=== PATIENT | female | born 1990 | race Caucasian/White ===

== ENCOUNTER 2022-12-18 13:13 | Inpatient (IN) | payer MEDICAID, SELFPAY ==
[2022-12-18] VITALS (29 sets, daily range): BP systolic 103–192; BP diastolic 55–132; PULSE 55–91; RESP 16; TEMP 35.7–36.8
[2022-12-18 14:10] LABS: Hematocrit 32.9 % (36.0-48.0); Hemoglobin 11.1 g/dL (12.0-16.0); Mean Corpuscular HGB Conc 33.7 g/dL (29.9-35.2); Mean Corpuscular Hemoglobin 29.3 pg (26.7-34.0); Mean Corpuscular Volume 86.8 fL (81.0-99.0); Mean Platelet Volume 11.2 fL (9.5-13.5); Platelet Count 252 10^3/uL (150-450); Red Blood Count 3.79 10^6/uL (4.20-5.40); Red Cell Distribution Width 13.2 % (11.0-15.0); White Blood Count 11.8 10^3/uL (4.0-11.0)
[2022-12-18 14:33] LABS: Amphetamine Screen Urine NEGATIVE (NEGATIVE); Barbiturates Screen Urine NEGATIVE (NEGATIVE); Benzodiazepines Screen Urine NEGATIVE (NEGATIVE); Buprenorphine Screen Urine NEGATIVE (NEGATIVE); Cannabinoid Screen Urine POSITIVE (NEGATIVE); Cocaine Screen Urine NEGATIVE (NEGATIVE); Methadone Screen Urine NEGATIVE (NEGATIVE); Methamphetamines Screen Urine NEGATIVE (NEGATIVE); Opiate Screen Urine NEGATIVE (NEGATIVE); Oxycodone Screen Urine NEGATIVE (NEGATIVE); Phencyclidine Screen Urine NEGATIVE (NEGATIVE); Tricyclic Antidepressant Urine NEGATIVE (NEGATIVE)
[2022-12-18] MEDS: OXYTOCIN 10 UNIT in 0.9 % SODIUM CHLORIDE 500 ML 6.012 UNIT IV (15:15)
--- NOTE | 2022-12-18 16:37 | PC.NURSE ---
From 1600 - 1620 patients IV keeps alarming distal occlusion. RN tries to adjust tubing and rescure the IV. Pt states Can you please just put a new IV in? This one is very uncomfortable. At 1620 new IV is started and pitocin is resumed. Pt remains on birthing ball with RN at bedside adjusting monitors.
--- NOTE | 2022-12-18 19:26 | W.PC.ACHO ---
Registration Status: ADM IN Primary Language: Slovenian Preferred Language: Slovenian Report given to Ruth Aviles RN Active Medications Generic Name Dose Route Start Last Admin Trade Name Freq PRN Reason Stop Dose Admin Carboprost Tromethamine 250 mcg 12/18/22 13:24 Carboprost Tromethamine 250 Mcg/Ml 1 Ml Vial IM Q15M PRN Bleeding Diphenhydramine HCl 25 mg 12/18/22 14:29 Diphenhydramine Hcl 50 Mg/Ml (1ml) Vial IV Q6H PRN Itching Ephedrine Sulfate 5 mg 12/18/22 14:29 Ephedrine Sulfate 50 Mg/Ml Vial IV Q5M PRN Blood Pressure - Low Fentanyl Citrate 100 mcg 12/18/22 14:29 Fentanyl Citrate/Pf 100 Mcg/2 Ml Vial EPIDURAL Q4H PRN Pain Sodium Chloride 1,000 mls @ 125 mls/hr 12/18/22 13:30 Sodium Chloride 0.9% 1,000 Ml IV .Q8H JEANNA Oxytocin 10 unit/ Sodium 501 mls @ 6.012 mls/hr 12/18/22 13:30 12/18/22 15:15 Chloride IV 2 milliunit/min Q24H JEANNA 6.012 mls/hr Administration 2 MILLIUNIT/MIN Oxytocin 10 unit/ Sodium 501 mls @ 6.012 mls/hr 12/18/22 13:30 Chloride IV Q24H JEANNA 2 MILLIUNIT/MIN Lidocaine 5 ml 12/18/22 13:24 Lidocaine Viscous 2% 15 Ml Topical Solution TOPICAL ONCE PRN Pain Lidocaine 1 ml 12/18/22 13:24 Lidocaine Hcl 1% 200 Mg/20 Ml Mdv INJ ONCE PRN Pain Lidocaine 5 ml 12/18/22 14:29 Lidocaine Hcl 2% Pf 100 Mg/5 Ml Vial INJ Q1H PRN Pain Methylergonovine Maleate 0.2 mg 12/18/22 13:24 Methylergonovine Maleate 0.2 Mg Tablet PO Q4H PRN Uterine Contractility/Contract Methylergonovine Maleate 0.2 mg 12/18/22 13:24 Methylergonovine Maleate 0.2 Mg/Ml Ampule IM ONCE PRN Uterine Contractility/Contract Misoprostol 600 mcg 12/18/22 13:24 Misoprostol 100 Mcg Tablet PO ONCE PRN Uterine Bleeding Misoprostol 800 mcg 12/18/22 13:24 Misoprostol 100 Mcg Tablet SL ONCE PRN Uterine Bleeding Misoprostol 1,000 mcg 12/18/22 13:24 Misoprostol 100 Mcg Tablet FL ONCE PRN Uterine Bleeding Nalbuphine HCl 10 mg 12/18/22 13:24 Nalbuphine Hcl 10 Mg/Ml Ampule IV Q3H PRN Pain Naloxone HCl 0.4 mg 12/18/22 14:29 Naloxone Hcl 0.4 Mg/Ml Vial IV ONCE PRN Pain Ondansetron HCl 4 mg 12/18/22 13:24 Ondansetron Pf 4 Mg/2 Ml Vial IV Q6H PRN Nausea And Vomiting Ondansetron HCl 4 mg 12/18/22 13:24 Ondansetron 4 Mg Rapdis Tablet SL Q6H PRN Nausea And Vomiting Oxytocin 10 unit 12/18/22 13:24 Oxytocin 100 Unit/10 Ml Vial IM ONCE PRN Uterine Bleeding Diet Category Date Time Status Clear Liquid Diet Diet 12/18/22 Lunch Active Consults Category Date Time Status Consult to Healthcare Associate Routine Cons 12/18/22 Ordered IV Insertion/Site Date of IV Line Insertion [18g 12/18/22 right Hand] Date of IV Line Insertion [18g 12/18/22 left Hand] IV Insertion Time [18g right 16:20 Hand] IV Insertion Time [18g left 13:50 Hand] Neurology Patient orientation (short person,place,time,situation list)
--- NOTE | 2022-12-18 20:45 | PC.NURSE ---
1930- RN educating pt on labor processes and pushing techniques at this time. Pt voices understanding.
[2022-12-18] MEDS: 0.9 % SODIUM CHLORIDE 1,000 ML 1000 ML IV (22:30)
[2022-12-18] MEDS: ROPIVACAINE HCL/PF 400 MG/200 ML PREMIX 10 MG EPIDURAL (23:31)
[2022-12-18] MEDS: 0.9 % SODIUM CHLORIDE 1,000 ML 125 ML IV (23:34)
[2022-12-19] VITALS (54 sets, daily range): BP systolic 101–133; BP diastolic 50–76; PULSE 48–103; RESP 16–18; TEMP 36.1–37.2
[2022-12-19] MEDS: FENTANYL CITRATE/PF 100 MCG/2 ML VIAL EPIDURAL (00:29)
[2022-12-19] MEDS: 0.9 % SODIUM CHLORIDE 1,000 ML 125 ML IV (01:46)
--- NOTE | 2022-12-19 04:03 | PM.OBPRCVD ---
Procedure Intrapartal events: None Induction method: per pitocin protocol Delivery augmentation: rupture of membranes and pitocin Delivery monitor: external FHT and external uterine Route of delivery: Laceration description: none Estimated blood loss (mL): 200 Anesthesia type: Epidural Disposition: floor Infant Gender: female presentation: vertex Placental delivery description: Spontaneous cord description: 3 Vessels, Nuchal Cord and Loose
--- NOTE | 2022-12-19 08:29 | W.PC.ACHO ---
Registration Status: ADM IN Primary Language: Tanzanian Preferred Language: Tanzanian Report given to Bin HOWARD. Active Medications Generic Name Dose Route Start Last Admin Trade Name Freq PRN Reason Stop Dose Admin Acetaminophen 650 mg 12/19/22 04:02 Acetaminophen 325 Mg Tablet PO Q6H PRN Mild Pain Al Hydroxide/Mg Hydroxide 2,400 mg 12/19/22 04:02 Magnesium Hydroxide 2,400 Mg/10 Ml Oral.Susp PO Q6H PRN Dyspepsia Benzocaine/Menthol 1 applic 12/19/22 04:02 Benzocaine/Menthol 85 Gram Bottle TOPICAL DIRECTED PRN Pain Carboprost Tromethamine 250 mcg 12/18/22 13:24 Carboprost Tromethamine 250 Mcg/Ml 1 Ml Vial IM Q15M PRN Bleeding Diphenhydramine HCl 25 mg 12/18/22 14:29 Diphenhydramine Hcl 50 Mg/Ml (1ml) Vial IV Q6H PRN Itching Docusate Sodium 100 mg 12/20/22 09:00 Docusate Sodium 100 Mg Capsule PO BID JEANNA Ephedrine Sulfate 5 mg 12/18/22 14:29 Ephedrine Sulfate 50 Mg/Ml Vial IV Q5M PRN Blood Pressure - Low Fentanyl Citrate 100 mcg 12/18/22 14:29 12/19/22 00:29 Fentanyl Citrate/Pf 100 Mcg/2 Ml Vial EPIDURAL 100 mcg Q4H PRN Administration Pain Sodium Chloride 1,000 mls @ 125 mls/hr 12/18/22 13:30 12/19/22 01:46 Sodium Chloride 0.9% 1,000 Ml IV 125 mls/hr .Q8H JEANNA Administration Oxytocin 10 unit/ Sodium 501 mls @ 6.012 mls/hr 12/18/22 13:30 12/18/22 15:15 Chloride IV 2 milliunit/min Q24H JEANNA 6.012 mls/hr Administration 2 MILLIUNIT/MIN Oxytocin 10 unit/ Sodium 501 mls @ 6.012 mls/hr 12/18/22 13:30 Chloride IV Q24H JEANNA 2 MILLIUNIT/MIN Ropivacaine/Sodium Chloride 400 mg in 200 mls @ 6 mls/hr 12/18/22 20:15 12/18/22 23:31 Naropin 0.2% 400 Mg/200 Ml Bag EPIDURAL 10 mls/hr Q24H JEANNA 10 mls/hr Administration Oxytocin 20 unit/ Sodium 1,002 mls @ 125 mls/hr 12/19/22 04:15 Chloride IV 12/19/22 12:14 Q8H JEANNA Ibuprofen 600 mg 12/19/22 04:02 Ibuprofen 600 Mg Tablet PO Q6H PRN Moderate Pain Lidocaine 5 ml 12/18/22 13:24 Lidocaine Viscous 2% 15 Ml Topical Solution TOPICAL ONCE PRN Pain Lidocaine 1 ml 12/18/22 13:24 Lidocaine Hcl 1% 200 Mg/20 Ml Mdv INJ ONCE PRN Pain Lidocaine 5 ml 12/18/22 14:29 Lidocaine Hcl 2% Pf 100 Mg/5 Ml Vial INJ Q1H PRN Pain Methylergonovine Maleate 0.2 mg 12/18/22 13:24 Methylergonovine Maleate 0.2 Mg Tablet PO Q4H PRN Uterine Contractility/Contract Methylergonovine Maleate 0.2 mg 12/18/22 13:24 Methylergonovine Maleate 0.2 Mg/Ml Ampule IM ONCE PRN Uterine Contractility/Contract Misoprostol 600 mcg 12/18/22 13:24 Misoprostol 100 Mcg Tablet PO ONCE PRN Uterine Bleeding Misoprostol 800 mcg 12/18/22 13:24 Misoprostol 100 Mcg Tablet SL ONCE PRN Uterine Bleeding Misoprostol 1,000 mcg 12/18/22 13:24 Misoprostol 100 Mcg Tablet [place] ONCE PRN Uterine Bleeding Nalbuphine HCl 10 mg 12/18/22 13:24 Nalbuphine Hcl 10 Mg/Ml Ampule IV Q3H PRN Pain Naloxone HCl 0.4 mg 12/18/22 14:29 Naloxone Hcl 0.4 Mg/Ml Vial IV ONCE PRN Pain Ondansetron HCl 4 mg 12/18/22 13:24 Ondansetron Pf 4 Mg/2 Ml Vial IV Q6H PRN Nausea And Vomiting Ondansetron HCl 4 mg 12/18/22 13:24 Ondansetron 4 Mg Rapdis Tablet SL Q6H PRN Nausea And Vomiting Oxytocin 10 unit 12/18/22 13:24 Oxytocin 100 Unit/10 Ml Vial IM ONCE PRN Uterine Bleeding Senna 17.2 mg 12/19/22 20:00 Sennosides 8.6 Mg Tablet PO QHS PRN Constipation Simethicone 80 mg 12/19/22 04:02 Simethicone 80 Mg Tab.Chew PO QID PRN Abdominal Distention Temazepam 15 mg 12/19/22 20:00 Temazepam 15 Mg Capsule PO BEDTIME PRN Sleep Witch Jennifer/Glycerin 1 each 12/19/22 04:02 Glycerin/Witch Jennifer 1 Each Jar TOPICAL DIRECTED PRN Pain Diet Category Date Time Status Regular Consistency Diet Diet 12/19/22 Breakfast Active IV Insertion/Site Date of IV Line Insertion [18g 12/18/22 right Hand] Date of IV Line Insertion [18g 12/18/22 left Hand] IV Insertion Time [18g right 16:20 Hand] IV Insertion Time [18g left 13:50 Hand] Neurology Patient orientation (short person,place,time,situation list) Catheter Date Urinary Catheter Removed 12/19/22
--- NOTE | 2022-12-19 08:50 | PC.NURSE ---
0028- LAW ENFORCEMENT DIRECTOR at bedside. LAW ENFORCEMENT DIRECTOR administers fentanyl and increase pump to 13.
--- NOTE | 2022-12-19 08:51 | PC.NURSE ---
0145- NS bag #4 bolus 999ml/hr. Pt positioned on right tilt. Pump increased to 15 rate
[2022-12-19] MEDS: IBUPROFEN 600 MG TABLET PO ×2 (09:20→20:25)
--- NOTE | 2022-12-19 14:36 | SWNOTE1 ---
SW consulted due to positive drug screen for THC. SW met with pt to discuss drug screen and any needs at discharge. Father of baby was in room as well, sleeping on couch. Pt admitted to using THC during due to morning sickness and nausea throughout , she does not plan on continuing use at discharge and she does not have her medical marijuana card. Pt did ask SW for resources in regards to disability, due to knee pain, and also WIC information. This is patient's first child, the father of the baby has 5 other children. Pt stated those 5 other kids are mainly with their mother. Pt does have everything she needs for baby including diapers, car seat, crib, clothing, etc. Pt is breast feeding and stated baby is latching and it is going well. SW did speak with pt about post- depression as well. Cord is sent. SW updated nursing. Pt is appropriate with baby. GELACIO called [facility] CPS to make report. HIPPA form filled out and sent to
--- NOTE | 2022-12-19 21:19 | W.PC.ACHO ---
Registration Status: ADM IN Primary Language: [place] Arabian Preferred Language: [place] Report recieved from Bin at 1920. Active Medications Generic Name Dose Route Start Last Admin Trade Name Jose Alfredo PRN Reason Stop Dose Admin Acetaminophen 650 mg 12/19/22 04:02 Acetaminophen 325 Mg Tablet PO Q6H PRN Mild Pain Al Hydroxide/Mg Hydroxide 2,400 mg 12/19/22 04:02 Magnesium Hydroxide 2,400 Mg/10 Ml Oral.Susp PO Q6H PRN Dyspepsia Benzocaine/Menthol 1 applic 12/19/22 04:02 Benzocaine/Menthol 85 Gram Bottle TOPICAL DIRECTED PRN Pain Carboprost Tromethamine 250 mcg 12/18/22 13:24 Carboprost Tromethamine 250 Mcg/Ml 1 Ml Vial IM 12/20/22 04:00 Q15M PRN Bleeding Docusate Sodium 100 mg 12/20/22 09:00 Docusate Sodium 100 Mg Capsule PO BID JEANNA Sodium Chloride 1,000 mls @ 125 mls/hr 12/18/22 13:30 12/19/22 01:46 Sodium Chloride 0.9% 1,000 Ml IV 125 mls/hr .Q8H JEANNA Administration Ibuprofen 600 mg 12/19/22 04:02 12/19/22 20:25 Ibuprofen 600 Mg Tablet PO 600 mg Q6H PRN Administration Moderate Pain Methylergonovine Maleate 0.2 mg 12/18/22 13:24 Methylergonovine Maleate 0.2 Mg Tablet PO 12/20/22 04:00 Q4H PRN Uterine Contractility/Contract Methylergonovine Maleate 0.2 mg 12/18/22 13:24 Methylergonovine Maleate 0.2 Mg/Ml Ampule IM 12/20/22 04:00 ONCE PRN Uterine Contractility/Contract Misoprostol 600 mcg 12/18/22 13:24 Misoprostol 100 Mcg Tablet PO 12/20/22 04:00 ONCE PRN Uterine Bleeding Misoprostol 800 mcg 12/18/22 13:24 Misoprostol 100 Mcg Tablet SL 12/20/22 04:00 ONCE PRN Uterine Bleeding Misoprostol 1,000 mcg 12/18/22 13:24 Misoprostol 100 Mcg Tablet NE 12/20/22 04:00 ONCE PRN Uterine Bleeding Ondansetron HCl 4 mg 12/18/22 13:24 Ondansetron Pf 4 Mg/2 Ml Vial IV Q6H PRN Nausea And Vomiting Ondansetron HCl 4 mg 12/18/22 13:24 Ondansetron 4 Mg Rapdis Tablet SL Q6H PRN Nausea And Vomiting Oxytocin 10 unit 12/18/22 13:24 Oxytocin 100 Unit/10 Ml Vial IM 12/20/22 04:00 ONCE PRN Uterine Bleeding Senna 17.2 mg 12/19/22 20:00 Sennosides 8.6 Mg Tablet PO QHS PRN Constipation Simethicone 80 mg 12/19/22 04:02 Simethicone 80 Mg Tab.Chew PO QID PRN Abdominal Distention Temazepam 15 mg 12/19/22 20:00 Temazepam 15 Mg Capsule PO BEDTIME PRN Sleep Witch Jennifer/Glycerin 1 each 12/19/22 04:02 Glycerin/Witch Jennifer 1 Each Jar TOPICAL DIRECTED PRN Pain Diet Category Date Time Status Regular Consistency Diet Diet 12/19/22 Breakfast Active Catheter Date Urinary Catheter Removed 12/19/22
[2022-12-20 00:40] VITALS: RESP 16
[2022-12-20 00:50] VITALS: BP 130/66; PULSE 68
--- NOTE | 2022-12-20 07:15 | W.PC.ACHO ---
Registration Status: ADM IN Primary Language: Nigerien Preferred Language: Nigerien Report given to Ketty HOWARD. Active Medications Generic Name Dose Route Start Last Admin Trade Name Freq PRN Reason Stop Dose Admin Acetaminophen 650 mg 12/19/22 04:02 Acetaminophen 325 Mg Tablet PO Q6H PRN Mild Pain Al Hydroxide/Mg Hydroxide 2,400 mg 12/19/22 04:02 Magnesium Hydroxide 2,400 Mg/10 Ml Oral.Susp PO Q6H PRN Dyspepsia Benzocaine/Menthol 1 applic 12/19/22 04:02 Benzocaine/Menthol 85 Gram Bottle TOPICAL DIRECTED PRN Pain Docusate Sodium 100 mg 12/20/22 09:00 Docusate Sodium 100 Mg Capsule PO BID JEANNA Sodium Chloride 1,000 mls @ 125 mls/hr 12/18/22 13:30 12/19/22 01:46 Sodium Chloride 0.9% 1,000 Ml IV 125 mls/hr .Q8H JEANNA Administration Ibuprofen 600 mg 12/19/22 04:02 12/19/22 20:25 Ibuprofen 600 Mg Tablet PO 600 mg Q6H PRN Administration Moderate Pain Ondansetron HCl 4 mg 12/18/22 13:24 Ondansetron Pf 4 Mg/2 Ml Vial IV Q6H PRN Nausea And Vomiting Ondansetron HCl 4 mg 12/18/22 13:24 Ondansetron 4 Mg Rapdis Tablet SL Q6H PRN Nausea And Vomiting Senna 17.2 mg 12/19/22 20:00 Sennosides 8.6 Mg Tablet PO QHS PRN Constipation Simethicone 80 mg 12/19/22 04:02 Simethicone 80 Mg Tab.Chew PO QID PRN Abdominal Distention Temazepam 15 mg 12/19/22 20:00 Temazepam 15 Mg Capsule PO BEDTIME PRN Sleep Witch Jennifer/Glycerin 1 each 12/19/22 04:02 Glycerin/Witch Jennifer 1 Each Jar TOPICAL DIRECTED PRN Pain Diet Category Date Time Status Regular Consistency Diet Diet 12/19/22 Breakfast Active Bowels Date of Last Bowel Movement 12/19/22
[2022-12-20 08:20] LABS: Basophils Absolute Auto 0.1 10^3/uL (0.0-0.1); Basophils Percent Auto 0.5 % (0.2-2.0); Eosinophils Absolute Auto 0.2 10^3/uL (0.0-0.7); Eosinophils Percent Auto 1.5 % (0.9-7.0); Hematocrit 33.3 % (36.0-48.0); Hemoglobin 10.7 g/dL (12.0-16.0); Immature Granulocytes Abs Auto 0.09 10^3/uL (0.00-0.03); Immature Granulocytes Pct Auto 0.6 % (0.0-0.5); Lymphocytes Percent Auto 28.2 % (20.5-60.0); Mean Corpuscular HGB Conc 32.1 g/dL (29.9-35.2); Mean Corpuscular Hemoglobin 28.9 pg (26.7-34.0); Monocytes Absolute Auto 0.9 10^3/uL (0.3-0.8); Monocytes Percent Auto 6.2 % (1.7-12.0); Platelet Count 231 10^3/uL (150-450); Red Cell Distribution Width 13.7 % (11.0-15.0); White Blood Count 14.3 10^3/uL (4.0-11.0)
[2022-12-20 08:27] VITALS: BP 119/70; PULSE 61
[2022-12-20] MEDS: DOCUSATE SODIUM 100 MG CAPSULE PO (08:27)
[2022-12-20] MEDS: IBUPROFEN 600 MG TABLET PO ×2 (08:27→16:29)
--- NOTE | 2022-12-20 11:21 | PM.OBPN ---
OB - PN: Subj Subjective Patient comments: no complaints [place] status: doing well and well Exam Narrative Exam Narrative: General exam was normal. Breast exam was normal. Respiratory function is normal. Heart regular rate and rhythm. Abdomen soft, nontender, bowel sounds positive, uterus is firm, nontender, lochia normal. Extremities no lesions. Neurological and psychiatric exams are grossly intact. Constitutional Vital Signs - 24 hr 12/19/22 17:43 12/19/22 20:27 12/20/22 00:50 Temperature Pulse Rate 74 67 68 Respiratory Rate Blood Pressure 133/73 H 121/63 H 130/66 H 12/20/22 08:27 12/19/22 13:49 12/19/22 17:40 Temperature 99.0 F Pulse Rate 61 Respiratory Rate 16 16 Blood Pressure 119/70 12/19/22 20:20 12/19/22 20:20 12/20/22 00:40 Temperature 98.1 F Pulse Rate Respiratory Rate 16 16 16 Blood Pressure Results Labs Labs: Short CBC 12/20/22 Range/Units 08:05 WBC 14.3 H (4.0-11.0) 10^3/uL Hgb 10.7 L (12.0-16.0) g/dL Hct 33.3 L (36.0-48.0) % Plt Count 231 (150-450) 10^3/uL OB - PN: A/P Plan - Vaginal Delivery day: 1 Plan: routine care Time Spent with Patient Time: Total time spent is greater than 50% in coordination of care (as documented) at patient's floor/unit and/or counseling patient: Total time spent with greater than 50% in coordination of care (as documented) at patient's floor/unit and/or counseling patient: less than 15 minutes
[2022-12-20 16:19] VITALS: BP 123/78; PULSE 63
[2022-12-20 16:46] VITALS: BP 123/78; PULSE 63; RESP 13; TEMP 36.8
[2022-12-21 00:20] VITALS: BP 133/70; PULSE 58
[2022-12-21] MEDS: IBUPROFEN 600 MG TABLET PO (00:24)
[2022-12-21] MEDS: DOCUSATE SODIUM 100 MG CAPSULE PO (00:24)
[2022-12-21 00:34] VITALS: RESP 13
[2022-12-21 00:36] VITALS: RESP 16; TEMP 36.6
--- NOTE | 2022-12-21 08:03 | W.PC.ACHO ---
Registration Status: ADM IN Primary Language: [place]ill[place] Preferred Language: [place] Active Medications Generic Name Dose Route Start Last Admin Trade Name Freq PRN Reason Stop Dose Admin Acetaminophen 650 mg 12/19/22 04:02 Acetaminophen 325 Mg Tablet PO Q6H PRN Mild Pain Al Hydroxide/Mg Hydroxide 2,400 mg 12/19/22 04:02 Magnesium Hydroxide 2,400 Mg/10 Ml Oral.Susp PO Q6H PRN Dyspepsia Benzocaine/Menthol 1 applic 12/19/22 04:02 Benzocaine/Menthol 85 Gram Bottle TOPICAL DIRECTED PRN Pain Docusate Sodium 100 mg 12/20/22 09:00 12/21/22 00:24 Docusate Sodium 100 Mg Capsule PO 100 mg BID JEANNA Administration Sodium Chloride 1,000 mls @ 125 mls/hr 12/18/22 13:30 12/19/22 01:46 Sodium Chloride 0.9% 1,000 Ml IV 125 mls/hr .Q8H JEANNA Administration Ibuprofen 600 mg 12/19/22 04:02 12/21/22 00:24 Ibuprofen 600 Mg Tablet PO 600 mg Q6H PRN Administration Moderate Pain Ondansetron HCl 4 mg 12/18/22 13:24 Ondansetron Pf 4 Mg/2 Ml Vial IV Q6H PRN Nausea And Vomiting Ondansetron HCl 4 mg 12/18/22 13:24 Ondansetron 4 Mg Rapdis Tablet SL Q6H PRN Nausea And Vomiting Senna 17.2 mg 12/19/22 20:00 Sennosides 8.6 Mg Tablet PO QHS PRN Constipation Simethicone 80 mg 12/19/22 04:02 Simethicone 80 Mg Tab.Chew PO QID PRN Abdominal Distention Temazepam 15 mg 12/19/22 20:00 Temazepam 15 Mg Capsule PO BEDTIME PRN Sleep Witch Jennifer/Glycerin 1 each 12/19/22 04:02 Glycerin/Witch Jennifer 1 Each Jar TOPICAL DIRECTED PRN Pain Cardiology Heart Sounds Regular Bowels Date of Last Bowel Movement [ 12/19/22 All Quadrants] Date of Last Bowel Movement 12/19/22
[2022-12-21 08:40] VITALS: BP 124/76; PULSE 62; RESP 16; TEMP 36.6
[2022-12-21 08:44] VITALS: BP 124/76; PULSE 62
--- NOTE | 2022-12-21 12:12 | P.OBPN_ITS ---
OB - PN: Subj Subjective Patient comments: no complaints and pain well controlled [place] status: doing well and well Exam Narrative Exam Narrative: General exam was normal.? Breast exam was normal.? Respiratory function is normal.? Heart regular rate and rhythm.? Abdomen soft, nontender, bowel sounds positive, uterus is firm, nontender, lochia normal.? Extremities no lesions.? Neurological and psychiatric exams are grossly intact. Constitutional Vital Signs - 24 hr 12/20/22 16:19 12/21/22 00:20 12/21/22 08:44 Temperature Pulse Rate 63 58 L 62 Respiratory Rate Blood Pressure 123/78 H 133/70 H 124/76 H Blood Pressure [Right Arm] 12/20/22 16:46 12/21/22 00:34 12/21/22 00:36 Temperature 98.2 F 97.9 F Pulse Rate 63 Respiratory Rate 13 13 16 Blood Pressure Blood Pressure [Right Arm] 123/78 H 12/21/22 08:40 Temperature 97.9 F Pulse Rate 62 Respiratory Rate 16 Blood Pressure Blood Pressure [Right Arm] 124/76 H OB - PN: A/P Plan - Vaginal Delivery day: 2 Plan: routine care and discharge home Time Spent with Patient Time: Total time spent is greater than 50% in coordination of care (as documented) at patient's floor/unit and/or counseling patient: Total time spent with greater than 50% in coordination of care (as documented) at patient's floor/unit and/or counseling patient: less than 15 minutes
[2022-12-24 06:10] LABS: Cannabinoid Positive (.); Carboxy THC Conf, MS, UR 62 ng/mL (Cutoff=10)
== END 2022-12-21 15:30 | disposition home or self-care (01) | DRG 560 ==
PROVIDERS: Admitting Provider Obstetrics & Gynecology; Visit Provider Obstetrics & Gynecology
DX: O99.334 Smoking (tobacco) complicating childbirth (principal); F17.210 Nicotine dependence, cigarettes, uncomplicated; Z3A.39 39 weeks gestation of pregnancy; Z37.0 Single live birth; O99.324 Drug use complicating childbirth; F12.90 Cannabis use, unspecified, uncomplicated
CPT/HCPCS: 36415; 59050; 59410; 80307; 80349; 85025; 85027; 86850; 86900; 86901; 96374; 96376

== ENCOUNTER 2023-10-21 21:22 | Outpatient (REF) | payer MEDICAID, SELFPAY | END 2023-10-21 21:23 | disposition home or self-care (01) | LOC: LAB 21:22 | PROVIDERS: Visit Provider Physician Assistant | DX: Z01.419 Encounter for gynecological examination (general) (routine) without abnormal findings (principal) | CPT/HCPCS: 87624; G0145 ==

== ENCOUNTER 2023-12-08 13:16 | Outpatient (REF) | payer MEDICAID, SELFPAY ==
--- OUTSIDE RECORDS SUMMARY | 2023-12-12 07:28 | XMS_ITS ---
Patient Summarization (C-CDA 2.1 CCD) Created on: December 12, 2023 Madonna Portillo : 1990 Sex: Female Author Organization Sample organization Care Team Providers Care Diesel Mechanic Name Role Phone Mario Davila Unavailable MISC, DR GARRIDO Primary Care Unavailable GENEVIEVE ., DR HOPPER Admitting Unavailable GENEVIEVE ., DR HOPPER Attending Unavailable GENEVIEVE ., DR HOPPER Consulting Unavailable MISC, DR GARRIDO Primary Care Unavailable GENEVIEVE ., DR HOPPER Admitting Unavailable GENEVIEVE ., DR HOPPER Attending Unavailable GENEVIEVE ., DR HOPPER Consulting Unavailable MISC, DR GARRIDO Primary Care Unavailable GENEVIEVE ., DR HOPPER Attending Unavailable GENEVIEVE ., DR HOPPER Admitting Unavailable [place], DR BHUPENDRA Raymundo Consulting Unavailable GENEVIEVE ., DR HOPPER Consulting Unavailable MISC, DR GARRIDO Primary Care Unavailable GENEVIEVE ., DR HOPPER Admitting Unavailable WEST, DR BHUPENDRA Raymundo Consulting Unavailable GENEVIEVE ., DR HOPPER Attending Unavailable GENEVIEVE ., DR HOPPER Consulting Unavailable GENEVIEVE ., DR HOPPER Admitting Unavailable GENEVIEVE ., DR HOPPER Attending Unavailable GENEVIEVE ., DR HOPPER Consulting Unavailable MISC, DR GARRIDO Primary Care Unavailable ZIDUNCAN, DR SARITA Harris Consulting Unavailable REQUEST, DR DALTON LISTED Consulting Unavailjohanny JONES ., IRAM Admitting Unavailable KAREN ., IRAM Attending Unavailable KAREN ., IRAM Consulting Unavailable MISC, DR GARRIDO Primary Care Unavailable FANNY MELÉNDEZ Consulting Unavailable HOWARD MEYERS Attending Unavailable CINTHYA URIARTE Attending Unavailable Ruchi Arroyo Attending Provider [phone] Ruchi Arroyo Attending Unavailable Ruchi Arroyo Admitting Unavailable Encounters Encounter Date Encounter Type Care Provider Facility Start: 12-08-2023 End: 12-08-2023 ambulatory Ruchi Arroyo [facility] Work Phone: Start: 12-08-2023 End: 12-08-2023 Departed Referred Ruchi Arroyo Work Phone: [facility] Start: 10-21-2023 End: 10-21-2023 ambulatory CINTHYA URIARTE Not Available Start: 08-23-2023 End: 08-23-2023 ambulatory HOWARD MEYERS Not Available Start: 10-29-2022 End: 10-30-[address] RUCHI ARROYO . Facility:[facility] Start: 09-10-2022 End: 09-10-[address] DOCTOR RAHMAN Facility:[facility] Start: 08-06-2022 End: 08-07-[address] DOCTOR RAHMAN Facility:[facility] Start: 05-29-2022 End: 05-30-[address] DOCTOR RAHMAN Facility:[facility] Start: 05-17-2022 End: 05-18-[address] DOCTOR RAHMAN Facility:[facility] Start: 04-18-2022 End: 04-18-2022 ambulatory Mario Davila Other [employer] Other Start: 04-18-2022 Office outpatient ne w 45 minutes Mario Davila [facility] Start: 04-13-2022 End: 04-13-2022 ambulatory IRAM JONES . Facility: Medications Current Medications Medication Drug Class(es) Dates Sig (Normalized) Sig (Original) Crutches Underarm Crutches (1 source) Start: 02-12-2019 Crutches Underarm Crutches Jan, Active Payers Date Payer Category Payer Self-pay [id number] 1990 Unknown [id number] .16.84 [id number] 1990 Unknown [id number] 1990 Unknown [id number] .16.84 [id number] 1990 Unknown [id number] 1990 Unknown [id number] 2.16.84 [id number] 1990 Unknown [id number] 2.16.84 [id number] 1990 Unknown [id number] 2.16.84 [id number] 1990 Unknown [id number] 2.16.84 [id number] 1957 [facility] [id number] 1957 Medicaid [id number] Medicaid Medicaid [id number] Unknown [place] BC/BS [id number] Unknown [employer] [id number] Unknown [id number] 2.16.8 [id number] Problems Active Problems Problem Classification Problem Date Documented Date Episodic/Chronic Immunizations and screening for infectious disease (2 sources) Encounter for screening for human papillomavirus (HPV); Translations: [Contact with and (suspected) exposure to infections with a predominantly sexual mode of transmission] Onset: 09-16-2022 Episodic Joint disorders and dislocations; trauma-related (2 sources) Derangement of right knee; Translations: [Unspecified internal derangement of right knee] Chronic Other complications of (4 sources) Maternal care for excessive growth, third trimester, not applicable or unspecified; Translations: [MAT CARE EXCSS FTL GRTH 3RD TRI UNS] Onset: 10-29-2022 Episodic Other female genital disorders (1 source) Other specified noninflammatory disorders of vagina; Translations: [OTH SPEC NONINFLAMMATORY D/O VAGINA] Onset: 09-16-2022 Episodic Other screening for suspected conditions (not mental disorders or infectious disease) (4 sources) Encounter for screening for malignant neoplasm of cervix; Translations: [ENC SCREENING MALIG NEOPLASM CERV] Onset: 09-10-2022 Episodic Residual codes; unclassified (1 source) 31 weeks gestation of ; Translations: [31 WEEKS GESTATION OF ] Onset: 11-04-2022 Episodic Substance-related disorders (1 source) Nicotine dependence, cigarettes, uncomplicated; Translations: [NICOTINE DEPEND CIGARETTES UNCOMP] Onset: 04-15-2022 Chronic Past or Other Problems Problem Classification Problem Date Documented Da te Episodic/Chronic E Codes: Natural/environment (1 source) Other and unspecified overexertion or strenuous movements or postures, initial encounter; Translations: [OTH AND UNS OVREXRT/STRN MVMT/POS INT] Onset: 04-15-2022 Episodic Other non-traumatic joint disorders (3 sources) Pain in right knee; Translations: [PAIN IN RIGHT KNEE] Onset: 04-13-2022 Episodic Other and delivery including normal (8 sources) state, incidental; Translations: [Encounter for supervision of normal , unspecified, second trimester] Onset: 05-29-2022 Episodic Sprains and strains (1 source) Sprain of unspecified site of right knee, initial encounter; Translations: [SPRAIN UNS SITE RT KNEE INITIAL] Onset: 04-15-2022 Episodic Results Test Name Value Interpretation Reference Range Facility [facility] 12-08-2023 L Specimen: [id number] Received: 12/09/23 Status: FRED Oneill Num: [id number] Spec Type: Surgical Subm Dr: Ruchi Arroyo Tissues: A Endocervix - Curettings (ECC) Procedures: HE/2, Gross/Micro L4 Age/ Patient Sex Location Account Attending Physician Madonna Portillo 33/ LABELL [id number] Ruchi Arroyo SPEC NUM: [id number] RECD: 12/09/23 STATUS: FRED ONEILL NUM: [id number] JOSE MANUEL: 12/08/[address]: Ruchi Arroyo ENTERED: 12/09/[address]: Linda,Lab SPEC TYPE: Surgical DEPT: KAVITHA QUIJANO ORDERED: HE/2, Gross/Micro L4 ORDERED: HE/2, Gross/Micro L4 Pathological Diagnosis Endocervix, curettage: Fragments of endocervical mucosa, unremarkable. Clinical Information LGSIL Gross Description Received in formalin labeled with the patient's name, date of and ECC (per requisition) is an aggregate of minute locke tissue collectively measuring 0.6 x 0.4 x 0.1 cm, entirely submitted in A1. CPT Codes 59686 -------- -------- Specimen: [id number] Received: 12/09/23 Status: FRED Oneill Num: [id number] Spec Type: Surgical Subm Dr: Ruchi Arroyo Tissues: A Endocervix - Curettings (ECC) Procedures: HE/Pablo, Gross/Micro L4 -------- Patient: Madonna Portillo [id number] (Continued) -------- Signed (signature on file) Hari Romero MD 12/10/23 1515 Normal [facility] US PREG GROWTHon 10-29-2022 US PREG GROWTH EXAMINATION: US PREG GROWTH HISTORY: Large for gestation age fetus COMPARISON: Ultrasound anatomy 08/06/2022 FINDINGS: Heart Rate: 139 bpm Number: 1 Position: Cephalic Amniotic Fluid Volume: 16.9 cm; normal range BIOMETRY: BPD: 8.3 cm; 33 weeks 2 days HC: 29.8cm; 33 weeks 0 days AC: 29.1 cm; 33 weeks 1 day FL: 6.3 cm; 32 weeks 5 days EFW: 2104 g; 77% FL/AC: 21.8 FL/BPD: 76.8 HC/AC: 1.02 GESTATIONAL AGE: Age by EDC: 31 weeks 6 days JANAK by EDC: 12/25/2022 Age by US: 33 weeks 0 days JANAK by US: 12/17/2022 IMPRESSION: 1. Single live intrauterine with growth detailed above. Electronically authenticated by: SARITA DILLARD Date: 2022-10-29 15:20 Normal [facility] PAP ACOG PANEL 2: 30 to 65on 09-19-2022 . . Normal [facility] Comment on above: Result Comment: Perf ormed at: WB Performed By: #### R UBIGG #### [facility] [address] [address] [address] Mariah Canales Age Gdln ACOG Testing 30-65 Normal [facility] Comment on above: Performed By: #### R UBIGG #### [facility] [address] [address] [address] Mariah Canales DIAGNOSIS: Comment Abnormal [facility] Comment on above: Result Comment: EPIT HELIAL CELL ABNORMALITY. ATYPICAL SQUAMOUS CELLS OF UNDETERMINED SIGNIFICANCE (ASC-US). FUNGAL ORGANISMS MORPHOLOGICALLY CONSISTENT WITH ANN MARIE SPECIES ARE PRESENT. Performed at: WB Performed By: #### R UBIGG #### [facility] [address] [address] [address] Mariah Canales Electronically signed by: Comment Normal [facility] Comment on above: Result Comment: Anita Toscano MD, Pathologist Performed at: WB Performed By: #### R UBIGG #### [facility] [address] [place] [address] Dr. Mariah Canales HPV Aptima Positive Abnormal Negative [facility] Comment on above: Result Comment: This nucleic acid amplification test detects fourteen high-risk HPV types (16,18,31,33,35,39,45,51,52,56,58,59,66,68) without differentiation. Performed at: =G Performed By: #### R UBIGG #### [facility] [address] [place] [address] Dr. Mariah Canales HPV Genotype Reflex Comment Normal [facility] Comment on above: Result Comment: Crit eria not met, HPV Genotype not performed. Performed at: WB Performed By: #### R UBIGG #### [facility] [address] [place] [address] Dr. Mariah Canales Methodology: Comment Normal [facility] Comment on above: Result Comment: This liquid based ThinPrep(R) pap test was screened with the use of an image guided system. Performed at: WB Performed By: #### R UBIGG #### [facility] [address] [place] [address] Dr. Mariah Canales Note: Comment Normal [facility] Comment on above: Result Comment: The Pap smear is a screening test designed to aid in the detection of premalignant and malignant conditions of the uterine cervix. It is not a diagnostic procedure and should not be used as the sole means of detecting cervical cancer. Both false-positive and false-negative reports do occur. . Performed at: WB Performed By: #### R UBIGG #### [facility] [address] [place] [address] Dr. Mariah Canales Pathologist Provided ICD10 Comment Normal [facility] Comment on above: Result Comment: R87. 610, R87.5 Performed at: WB Performed By: #### R UBIGG #### [facility] [address] [place] [address] Dr. Mariah Canales Performed by: Comment Normal [facility] Comment on above: Result Comment: Annette Sabillon, Package Center Supervisor Performed at: WB Performed By: #### R UBIGG #### [facility] [address] [place] [address] Dr. Mariah Canales Recommendation: Comment Abnormal [facility] Comment on above: Result Comment: Sugg est follow up as clinically appropriate. Performed at: WB Performed By: #### R UBIGG #### [facility] [address] [address] [address] Mariah Canales Specimen adequacy: Comment Normal [facility] Comment on above: Result Comment: Sati sfactory for evaluation. No endocervical component is identified. Performed at: WB Performed By: #### R UBIGG #### [facility] [address] [place] [address] Dr. Mariah Canales CHLAMYDIA/GONOCOCCUS JAMES (SW AB/URINE/PAPon 09-13-2022 Chlamydia trachomatis, JAMES Negative Normal Negative [facility] Comment on above: Performed By: #### C T/NGNA #### [facility] [address] [place] [address] Dr. Mariah Canales Neisseria gonorrhoeae, JAMES Negative Normal Negative [facility] Comment on above: Performed By: #### C T/NGNA #### [facility] [address] [place] [address] Dr. Mariah Canales VAGINITIS/VAGINOSIS DNA PROB Benitez 09-12-2022 Ann [place] species Positive Abnormal Negative [facility] Comment on above: Performed By: #### V AGINT #### [facility] [address] [place] [address] Dr. Mariah Canales Gardnerella vaginalis Negative Normal Negative [facility] Comment on above: Performed By: #### V AGINT #### [facility] [address] [place] [address] Dr. Mariah Canales Trichomonas vaginalis Negative Normal Negative [facility] Comment on above: Performed By: #### V AGINT #### [facility] [address] [place] [address] Dr. Mariah Canales US PREG ANATOMY SINGLEon US PREG ANATOMY SINGLE EXAMINATION: US PREG ANATOMY SINGLE HISTORY: anatomy study COMPARISON: No relevant comparison available. TECHNIQUE: Transabdominal sonographic examination was performed for obstetrical and evaluation. FINDINGS: Number: 1 Heart Rate: 131.0 bpm H.B. /min Amniotic Fluid Volume: Subjectively normal position: Breech Placental Location: Anterior, grade 0. Placental edge 4.2 cm from the internal os Cervix Length: 4.3 cm, closed Normal structures: Cerebellum. Choroid plexus. Cisterna magna. Lateral cerebral ventricles. Orbits. Midline falx. Hard palate. 4-chamber heart. RVOT. LVOT. Stomach. Kidneys. Bladder. Umbilical cord insertion into abdomen. 3 vessel cord. Cervical spine. Thoracic spine. Lumbar spine. Sacral spine. Right upper extremity. Left upper extremity. Right lower extremity. Left lower extremity. Suboptimally seen: None. Abnormalities/Other: None BIOMETRY: BPD: 4.5 cm 19 weeks 4 days , 38% HC: 16.8 cm 19 weeks 3 days, 24% AC: 15.4 cm 20 weeks 4 days, 69% FL: 3.2 cm 20 weeks 0 days, 46% EFW:338.2 grams; 12 ounces, 65% FL/AC: 20.8 FL/BPD: 71.3 HC/AC: 1.1 GESTATIONAL AGE: Age by EDC: 19 weeks 6 days JANAK by EDC: 12/25/2022 Age by current US: 19 weeks 6 days JANAK by current US: 12/25/2022 IMPRESSION: Normal anatomy scan *Reference: [facility] Practice Guideline for the performance of Obstetric Ultrasound Examinations, March 30, 2007. Electronically authenticated by: BHUPENDRA GRIFFIN Date: 2022-08-06 10:54 Normal [facility] HEP B SURFACE ANTIGEN SCREEN on 05-31-2022 HBsAg Screen Negative Normal Negative [facility] Comment on above: Performed By: #### H BSA #### [facility] [address] [place] [address] Dr. Mariah Canales HEPATITIS C VIRUS AB W/ REFL EX QUANTon 05-31-2022 HCV AB 0.1 s/co ratio Normal 0.0-0.9 [facility] Comment on above: Performed By: #### H CVPCRR #### [facility] [address] [place] [address] Dr. Mariah Canales Interpretation: Comment Normal [facility] Comment on above: Result Comment: Nega tive Not infected with HCV, unless recent infection is suspected or other evidence exists to indicate HCV infection. Performed By: #### H CVPCRR #### [facility] [address] [place] [address] Dr. Mariah Canales HIV 1 AND 2 WITH REFLEXon HIV Screen 4th Generation wRfx Non-Reactive Normal Non Reactive [facility] Comment on above: Result Comment: HIV Negative HIV-1/HIV-2 antibodies and HIV-1 p24 antigen were NOT detected. There is no laboratory evidence of HIV infection. Performed By: #### H IV12 #### [facility] [address] [place] [address] Dr. Mariah Canales RPR QUANTon 05-31-2022 Rapid Plasma Reagin, Quant Non-Reactive Normal NonRea<1:1 [facility] Comment on above: Result Comment: Plea se Note: This test does not meet current guidelines for screening and diagnosis of syphilis. This test is intended for following treatment response in patients being treated for syphilis infection. To screen for syphilis infection, a reflex cascade that includes both RPR and a treponema-specific assay should be utilized, such as Treponema pallidum (Syphilis) Screening Craven (272443) or Rapid Plasma Reagin (RPR) Test With Reflex to Quantitative RPR and Confirmatory Treponema pallidum Antibodies (221096). Performed By: #### R PRQ #### [facility] [address] [place] [address] Dr. Mariah Canales RUBELLA AB IGGon 05-31-2022 Rubella Antibodies, IgG 1.13 index Normal Immune >0.99 [facility] Comment on above: Result Comment: Non- immune <0.90 Equivocal 0.90 - 0.99 Immune >0.99 Performed By: #### R UBIGG #### [facility] [address] [place] [address] Dr. Mariah Canales CBC AUTO DIFFon 11-30-2022 BASO # 0.1 103/ul Normal 0.0-0.1 [facility] Comment on above: Performed By: #### C BC #### [facility] [address] [place] [address] Dr. Mariah Canales Basophils/100 WBC (Bld) 0.5 % Normal 0.2-2.0 [facility] Comment on above: Performed By: #### C BC #### [facility] [address] [place] [address] Dr. Mariah Canales EO # 0.0 103/ul Normal 0.0-0.7 [facility] Comment on above: Performed By: #### C BC #### [facility] [address] [place] [address] Dr. Mariah Canales Eosinophils/100 WBC (Bld) 0.4 % Critically low 0.9-7.0 [facility] Comment on above: Performed By: #### C BC #### [facility] [address] [place] [address] Dr. Mariah Canales Erythrocyte distribution width (RBC) [Ratio] 11.8 % Normal 11.0-15.0 [facility] Comment on above: Performed By: #### C BC #### [facility] [address] [place] [address] Dr. Mariah Canales Hematocrit (Bld) [Volume fraction] 40.7 % Normal 36.0-48.0 [facility] Comment on above: Performed By: #### C BC #### [facility] [address] [place] [address] Dr. Mariah Canales Hemoglobin (Bld) [Mass/Vol] 13.9 g/dL Normal 12.0-16.0 [facility] Comment on above: Performed By: #### C BC #### [facility] [address] [place] [address] Dr. Mariah Canales IG # 0.04 10e3/ul Critically high 0.00-0.03 [facility] Comment on above: Performed By: #### C BC #### [facility] [address] [place] [address] Dr. Mariah Canales IG % 0.4 % Normal 0.0-0.5 [facility] Comment on above: Performed By: #### C BC #### [facility] [address] [place] [address] Dr. Mariah Canales LYMPH # 2.2 103/ul Normal 1.2-3.8 [facility] Comment on above: Performed By: #### C BC #### [facility] [address] [place] [address] Dr. Mariah Canales Lymphocytes/100 WBC (Bld) 23.2 % Normal 20.5-60.0 [facility] Comment on above: Performed By: #### C BC #### [facility] [address] [place] [address] Dr. Mariah Canales MANUAL DIFF REQ NO Normal [facility] Comment on above: Performed By: #### C BC #### [facility] [address] [place] [address] Dr. Mariah Canales MCH (RBC) [Entitic mass] 29.6 pg Normal 26.7-34.0 [facility] Comment on above: Performed By: #### C BC #### [facility] [address] [place] [address] Dr. Mariah Canales MCHC (RBC) [Mass/Vol] 34.2 g/dL Normal 29.9-35.2 [facility] Comment on above: Performed By: #### C BC #### [facility] [address] [place] [address] Dr. Mariah Canales MCV (RBC) [Entitic vol] 86.8 fL Normal 81.0-99.0 [facility] Comment on above: Performed By: #### C BC #### [facility] [address] [place] [address] Dr. Mariah Canales MONO # 0.5 103/ul Normal 0.3-0.8 [facility] Comment on above: Performed By: #### C BC #### [facility] [address] [place] [address] Dr. Mariah Canales Monocytes/100 WBC (Bld) 5.6 % Normal 1.7-12.0 [facility] Comment on above: Performed By: #### C BC #### [facility] [address] [address] [address] Mariah Canales NEUT # 6.6 103/ul Critically high 1.4-6.5 [facility] Comment on above: Performed By: #### C BC #### [facility] [address] [address] [address] Mariah Canales Neutrophils/100 WBC (Bld) 69.9 % Normal 43.0-75.0 [facility] Comment on above: Performed By: #### C BC #### [facility] [address] [address] [address] Mariah Canales Platelet mean volume (Bld) [Entitic vol] 10.5 fL Normal 9.5-13.5 [facility] Comment on above: Performed By: #### C BC #### [facility] [address] [place] [address] Dr. Mariah Canales PLT 280 103/ul Normal 150-450 [facility] Comment on above: Performed By: #### C BC #### [facility] [address] [address] [address] Mariah Canales RBC 4.69 106/ul Normal 4.20-5.40 [facility] Comment on above: Performed By: #### C BC #### [facility] [address] [place] [address] Dr. Mariah Canales WBC 9.4 103/ul Normal 4.0-11.0 [facility] Comment on above: Performed By: #### C BC #### [facility] [address] [address] [address] Mariah Canales CULTURE URINEon 05-29-2022 CULTURE URINE Culture Observations : LIGHT GROWTH OF MIXED GENITAL EDSON. NO POTENTIAL PATHOGENS SEEN. Normal [facility] Comment on above: Performed By: #### R UBIGG #### [facility] [address] [place] [address] Dr. Mariah Canales GLYCOHEMOGLOBIN A1Con 2021 ADA RECOMMENDATION SEE BELOW Normal [facility] Comment on above: Result Comment: ADA RECOMMENDED LIMIT 4.0 - 6.0 ADA THERAPEUTIC TARGET < 7.0 ACTION SUGGESTED > 7.0 Performed By: #### A 1C #### [facility] [address] [place] [address] Dr. Mariah Canales Glucose [Mass/Vol] 103 mg/dL Normal [facility] Comment on above: Performed By: #### A 1C #### [facility] [address] [address] [address] Mariah Canales HbA1c (Bld) [Mass fraction] 5.2 % Normal 4.5-6.2 [facility] Comment on above: Performed By: #### A 1C #### [facility] [address] [place] [address] Dr. Mariah Canales TYPE AND SCREENon 05-29-2022 TYPE AND SCREEN Negative Normal [facility] Comment on above: Performed By: #### R UBIGG #### [facility] [address] [place] [address] Dr. Mariah Canales US PREG TVon 05-17-2022 US PREG TV EXAMINATION: US PREG TV HISTORY: Missed period COMPARISON: No relevant comparison available. FINDINGS: Transvaginal images Meyers intrauterine gestation Gestational sac: 3.8 cm, 9 weeks 0 days CRL: 1.8 cm, 8 weeks 2 days Yolk sac: 0.3 cm Heart rate: 169 bpm Cervix: Closed, 4.2 cm The uterus is normal in appearance, anteverted, anteflexed The ovaries are normal in appearance. Clinical age: 9 weeks 6 days Clinical JANAK: 12/14/2022 Ultrasound age: 8 weeks 2 days Ultrasound JANAK: 12/19/2022 IMPRESSION: Meyers intrauterine gestation measuring 8 weeks 2 days Electronically authenticated by: BHUPENDRA GRIFFIN Date: 2022-05-17 15:27 Normal [facility] XR KNEE RT 4V or >on 022 XR KNEE RT 4V or > EXAMINATION: XR KNEE RT 4V or >, 04/13/2022 1:18 PM EDT HISTORY: C/O: a pain COMPARISON: None. TECHNIQUE: 4 views of the right knee were obtained. FINDINGS: The bones are in appropriate alignment with no acute fractures or dislocations. The overlying soft tissues are unremarkable. No significant joint effusion. IMPRESSION: 1. No acute osseous abnormalities. Electronically authenticated by: FANNY MELÉNDEZ Date: 2022-04-13 14:19 Normal [facility] Social History Date Type Detail Facility Start: 1990 Sex Assigned At Female F [facility] Unknown if ever smoked [facility] Other Sex Assigned At Sex Assigned At [facility] Other Vital Signs Date Time Vital Sign Value Performing Clinician Jamey herzog 04-18-2022 12:00-0400 Body height 165.1 cm Mario Ruizsergo Other [facility] Other 04-18-2022 12:00-0400 Body mass index (BMI) [Ratio] 26.62 kg/m2 Mario Ruizxa Other [facility] Other 04-18-2022 12:00-0400 Body weight 72.58 kg Mario Ruizxa Other [facility] Other Evaluation note 04-18-2022 Note Date & Type Note Facility 04-18-2022 Evaluation note Encounter Date Diagnosis Assessment Notes Mar, Internal derangement of right knee (ICD-10 - M23.91) I am concerned about potential anterior cruciate ligament (ACL) tear and meniscal tear that will not improve with conservative and non-operative treatments. Continued active use of the knee can lead to worsening of the condition and lead to irreversible damage to the knee. An MRI of the knee will be necessary to identify the source of pain and plan potential surgical treatment. [facility] Other Evaluation note Note Date & Type Note Facility Evaluation note No assessment information availa [facility] Work Phone: History general Narrative - Reported Note Date & Type Note Facility History general Narrative - Reported Type Surgical History right knee acl recon struction by Jeevan Carroll MD at [facility] 2014 [facility] Other Summary Purpose Family History No Family History Records FoundNo Family History Records FoundNo Family History Records Found Advance Directives No Advanced Directives Records Found Advance Directive Response Recorded Date/ Time Advance Directives No February 13, 2019 7:34pm Additional Source Comments REASON FOR VISIT (unrecogniz ed section and content) Right Knee Injury INFORMATION SOURCE (unrecogn ized section and content) DATE CREATED AUTHOR 12/06/2022 [facility] DATE CREATED AUTHOR AUTHOR'S ORGANIZ ATION 10/22/2023 [facility] EPIC DATE CREATED AUTHOR AUTHOR'S ORGANIZ ATION 12/12/2023 [facility] Care Teams (unrecognized sec tion and content) Team Status: Inactive Member Role Status Dates Ruchi Arroyo Attending Provider Active Start: 2023 End: December 08, 2023 Goals (unrecognized section and content) Goals may be documented in a n alternate section FOR RECORDS PERTAINING TO PATIENTS WHO ARE OR HAVE BEEN ENROLLED IN A CHEMICAL DEPENDENCY/SUBSTANCEABUSE PROGRAM, SOME INFORMATION MAY BE OMITTED. This clinical summary was aggregated from multiple sources. Caution should be exercised in using it in the provision of clinical care. This summary normalizes information from multiple sources, and as a consequence, information in this document may materially change the coding, format and clinical context of patient data. In addition, data may be omitted in some cases. CLINICAL DECISIONS SHOULD BE BASED ON THE PRIMARY CLINICAL RECORDS. [employer] provides no warranty or guarantee of the accuracy or completeness of information in this document.
== END 2023-12-08 13:17 ==
LOC: LAB 13:16
PROVIDERS: Visit Provider Obstetrics & Gynecology
DX: R87.612 Low grade squamous intraepithelial lesion on cytologic smear of cervix (LGSIL) (principal)
CPT/HCPCS: 88305

== ENCOUNTER 2024-06-14 22:07 | Outpatient (REF) | payer MEDICAID, SELFPAY ==
--- OUTSIDE RECORDS SUMMARY | 2024-06-14 22:10 | XMS_ITS | CCD ---
Demographics Address [address] [place] [address] Preferred Language en Marital Status Rastafarian Affiliation Unknown Race White Ethnic Group Not or Lati no Author Organization [facility] Care Team Providers Care Lav Crewman Name Role Phone Mario Davila Unavailable ASHLEIGHC, DR GARRIDO Primary Care Unavailable CRUZ ., DR HOPPER Admitting Unavailable CRUZ ., DR HOPPER Attending Unavailable CRUZ ., DR HOPPER Consulting Unavailable MISC, DR GARRIDO Primary Care Unavailable CRZU ., DR HOPPER Admitting Unavailable CRUZ ., DR HOPPER Attending Unavailable CRUZ ., DR HOPPER Consulting Unavailable MISC, DR GARRIDO Primary Care Unavailable CRUZ ., DR HOPPER Attending Unavailable CRUZ ., DR HOPPER Admitting Unavailable WEST, DR BHUPENDRA Raymundo Consulting Unavailable CRUZ ., DR HOPPER Consulting Unavailable MISC, DR GARRIDO Primary Care Unavailable CRUZ ., DR HOPPER Admitting Unavailable WEST, DR BHUPENDRA Raymundo Consulting Unavailable CRUZ ., DR HOPPER Attending Unavailable CRUZ ., DR HOPPER Consulting Unavailable CRUZ ., DR HOPPER Admitting Unavailable CRUZ ., DR HOPPER Attending Unavailable CRUZ ., DR HOPPER Consulting Unavailable MISC, DR GARRIDO Primary Care Unavailable ZIEBFER, DR SARITA Harris Consulting Unavailable REQUEST, DR DALTON LISTED Consulting Unavaila chan JONES ., IRAM Admitting Unavailable KAREN ., IRAM Attending Unavailable KAREN ., IRAM Consulting Unavailable MISC, DR GARRIDO Primary Care Unavailable FANNY MELÉNDEZ Consulting Unavailable Christel Arroyoy Attending Provider Ruchi Arroyo Attending Unavailable Ruchi Arroyo Admitting Unavailable HOWARD MEYERS Attending Unavailable CINTHYA URIARTE Attending Unavailable CRUZ, RUCHI Attending Unavailable KALANI, CINTHYA Attending Unavailable KALANI CINTHYA Referring Unavailable RUCHI ARROYO Attending Unavailable Medications Current Medications Medication Drug Class(es) Dates Sig (Normalized) Sig (Original) Crutches Underarm Crutches (1 source) Start: 02-12-2019 Crutches Underarm Crutches Jan, Active Problems Active Problems Problem Classification Problem Date [...] Test Name Value Interpretation Reference Range Facility US PELVIC COMPLETE W/ TVon 0 02-02-2024 US PELVIC COMPLETE W/ TV EXAM: Pelvic Ultrasound, Transabdominal and Transvaginal. REASON FOR EXAM: Pelvic pain. TECHNIQUE: Transabdominal and endovaginal scanning was performed, including color Doppler. FINDINGS: Bladder: Smooth, normal margins. No obvious masses or diverticula. Myometrium: Smooth, normal echogenicity without focal masses. Endometrium: Normal thickness and echogenicity without fluid. Cervix: Unremarkable. Cul-de-sac: No significant free fluid present. Right Ovary: Multiple follicles. Normal size and echogenicity. Intact blood flow. Left Ovary: Multiple follicles. Normal size and echogenicity. Intact blood flow. Measurements: Uterus: 8.1 x 5.0 x 3.3 cm EM: 0.2 cm Right Ovary: 5.2 x 3.4 x 2.9 cm Left Ovary: 4.2 x 3.1 x 3.0 cm IMPRESSION, Transabdominal Pelvic Ultrasound: Unremarkable appearance of the uterus. Multiple follicles somewhat suggestive of polycystic ovary syndrome. IMPRESSION, Endovaginal Pelvic Ultrasound: Unremarkable appearance of the uterus. Multiple follicles somewhat suggestive of polycystic ovary syndrome. *This report is generated using voice recognition reporting (Zubican). On occasion [employer] erroneously drops words from the report or replaces the spoken word with similar sounding words. Please call with any questions/concerns regarding this report.* Dictated and transcribed 02/03/2024/ This report has been electronically signed and approved by the interpreting radiologist. Electronically Signed Yann Paul M.D. 2024-02-03 13:03:14 Normal Not Available Vickey 12-08-2023 L Specimen: [id number] Received: 12/09/23 Status: FRED Oneill Num: [id number] Spec Type: Surgical Subm Dr: Ruchi Arroyo Tissues: A Endocervix - Curettings (ECC) Procedures: HE/2, Gross/Micro L4 Age/ Patient Sex Location Account Attending Physician Madonna Portillo 33/F [facility] [id number] Ruchi Arroyo SPEC NUM: [id number] RECD: 12/09/23 STATUS: FRED ONEILL NUM: [id number] JOSE MANUEL: 12/08/[address]: Ruchi Arroyo ENTERED: 12/09/[address] [facility] [address]: Linda,Lab SPEC TYPE: Surgical DEPT: KAVITHA QUIJANO ORDERED: HE/2, Gross/Micro L4 ORDERED: HE2, Gross/Micro L4 Pathological Diagnosis Endocervix, curettage: Fragments of endocervical mucosa, unremarkable. Clinical Information LGSIL Gross Description Received in formalin labeled with the patient's name, date of and ECC (per requisition) is an aggregate of minute locke tissue collectively measuring 0.6 x 0.4 x 0.1 cm, entirely submitted in A1. CPT Codes 17005 -------- -------- Specimen: [id number] Received: 12/09/23 Status: FRED Oneill Num: [id number] Spec Type: Surgical Subm Dr: Ruchi Arroyo Tissues: A Endocervix - Curettings (ECC) Procedures: HE/2, Gross/Micro L4 -------- Patient: Madonna Portillo [id number] (Continued) -------- Signed (signature on file) Hari Romero MD 12/10/23 1515 Normal [facility] Phys[facility] US PREG GROWTHon 10-29-2022 US PREG GROWTH [...] by: SARITA DILLARD Date: 2022-10-29 15:20 Normal [facility] PAP ACOG PANEL 2: 30 to 65on 09-19-2022 . . Normal [facility] Comment on above: Result Comment: Perf ormed at: WB Performed By: #### R UBIGG #### [facility] [address] [place] [address] Dr. Mariah Canales Age Gdln ACOG Testing 30-65 Normal [facility] Comment on above: Performed By: #### R UBIGG #### [facility] [address] [place] [address] Dr. Mariah Canales DIAGNOSIS: Comment Abnormal [facility] Comment on above: Result Comment: EPIT HELIAL CELL ABNORMALITY. ATYPICAL SQUAMOUS CELLS OF UNDETERMINED SIGNIFICANCE (ASC-US). FUNGAL ORGANISMS MORPHOLOGICALLY CONSISTENT WITH ANN MARIE SPECIES ARE PRESENT. Performed at: WB Performed By: #### R UBIGG #### [facility] [address] [address] [address] Mariah Canales Electronically signed by: Comment Normal [facility] Comment on above: Result Comment: Anita Toscano MD, Pathologist Performed at: WB Performed By: #### R UBIGG #### [facility] [address] [address] [address] Mariah Canales HPV Aptima Positive Abnormal Negative [facility] Comment on above: Result Comment: This nucleic acid amplification test detects fourteen high-risk HPV types (16,18,31,33,35,39,45,51,52,56,58,59,66,68) without differentiation. Performed at: =G Performed By: #### R UBIGG #### [facility] [address] [address] [address] Mariah Canales HPV Genotype Reflex Comment Normal [facility] Comment on above: Result Comment: Crit eria not met, HPV Genotype not performed. Performed at: WB Performed By: #### R UBIGG #### [facility] [address] [place] [address] Dr. Mariah Canales Methodology: Comment Normal [facility] Comment on above: Result Comment: This liquid based ThinPrep(R) pap test was screened with the use of an image guided system. Performed at: WB Performed By: #### R UBIGG #### [facility] [address] [place] [address] Dr. Mariah Canales Note: Comment Normal [facility] Comment on above: Result Comment: The Pap smear is a screening test designed to aid in the detection of premalignant and malignant conditions of the uterine cervix. It is not a diagnostic procedure and should not be used as the sole means of detecting cervical cancer. Both false-positive and false-negative reports do occur. . Performed at: WB Performed By: #### R UBIGG #### [facility] [address] [address] [address] Mariah Canales Pathologist Provided ICD10 Comment Normal [facility] Comment on above: Result Comment: R87. 610, R87.5 Performed at: WB Performed By: #### R UBIGG #### [facility] [address] [place] [address] Dr. Mariah Canales Performed by: Comment Normal [facility] Comment on above: Result Comment: Annette Sabillon, Correctional [facility] Nurse Performed at: WB Performed By: #### R UBIGG #### [facility] [address] [place] [address] Dr. Mariah Canales Recommendation: Comment Abnormal [facility] Comment on above: Result Comment: Sugg est follow up as clinically appropriate. Performed at: WB Performed By: #### R UBIGG #### [facility] [address] [place] [address] Dr. Mariah Canales Specimen adequacy: Comment Normal [facility] Comment on above: Result Comment: Sati sfactory for evaluation. No endocervical component is identified. Performed at: WB Performed By: #### R UBIGG #### [facility] [address] [place] [address] Dr. Mariah Canales CHLAMYDIA/GONOCOCCUS JAMES (SW AB/URINE/PAPon 09-13-2022 Chlamydia trachomatis, JAMES Negative Normal Negative [facility] Comment on above: Performed By: #### C T/NGNA #### [facility] [address] [place] [address] Dr. Mariah Canales Neisseria gonorrhoeae, JAMES Negative Normal Negative [facility] Comment on above: Performed By: #### C T/NGNA #### [facility] [address] [place] [address] Dr. Mariah Canales VAGINITIS/VAGINOSIS DNA PROB Benitez 09-12-2022 Ann Marie species Positive Abnormal Negative [facility] Comment on above: Performed By: #### V AGINT #### [facility] [address] [place] [address] Dr. Mariah Canales Gardnerella vaginalis Negative Normal Negative [facility] Comment on above: Performed By: #### V AGINT #### [facility] [address], [place] [address] Dr. Mariah Canales Trichomonas vaginalis Negative Normal Negative [facility] Comment on above: Performed By: #### V AGINT #### [facility] [address], [place] [address] Dr. Mariah Canales US PREG ANATOMY SINGLEon [...] BHUPENDRA GRIFFIN Date: 2022-08-06 10:54 Normal [facility] HEP B SURFACE ANTIGEN SCREEN on 05-31-2022 HBsAg Screen Negative Normal Negative [facility] Comment on above: Performed By: #### H BSANS #### [facility] [address] [address] [address] Mariah Canales HEPATITIS C VIRUS AB W/ REFL EX QUANTon 05-31-2022 HCV AB 0.1 s/co ratio Normal 0.0-0.9 [facility] Comment on above: Performed By: #### H CVPCRR #### [facility] [address] [place] [address] Dr. Mariah Canales Interpretation: Comment Normal [facility] Comment on above: Result Comment: Nega tive Not infected with HCV, unless recent infection is suspected or other evidence exists to indicate HCV infection. Performed By: #### H CVPCRR #### [facility] [address] [place] [address] Dr. Mariah Canales HIV 1 AND 2 WITH REFLEXon HIV Screen 4th Generation wRfx Non-Reactive Normal Non Reactive [facility] Comment on above: Result Comment: HIV Negative HIV-1/HIV-2 antibodies and HIV-1 p24 antigen were NOT detected. There is no laboratory evidence of HIV infection. Performed By: #### H IV12 #### [facility] [address] [place] [address] Dr. Mariah Canales RPR QUANTon 05-31-2022 Rapid Plasma Reagin, Quant Non-Reactive Normal NonRea<1:1 [facility] Comment on above: Result Comment: Plea se Note: This test does not meet current guidelines for screening and diagnosis of syphilis. This test is intended for following treatment response in patients being treated for syphilis infection. To screen for syphilis infection, a reflex cascade that includes both RPR and a treponema-specific assay should be utilized, such as Treponema pallidum (Syphilis) Screening Keith (852761) or Rapid Plasma Reagin (RPR) Test With Reflex to Quantitative RPR and Confirmatory Treponema pallidum Antibodies (729215). Performed By: #### R PRQ #### [facility] [address] [place] [address] Dr. Mariah Canales RUBELLA AB IGGon 05-31-2022 Rubella Antibodies, IgG 1.13 index Normal Immune >0.99 [facility] Comment on above: Result Comment: Non- immune <0.90 Equivocal 0.90 - 0.99 Immune >0.99 Performed By: #### R UBIGG #### [facility] [address] [place] [address] Dr. Mariah Canales CBC AUTO DIFFon 05-29-2022 BASO # 0.1 103/ul Normal 0.0-0.1 [facility] Comment on above: Performed By: #### C BC #### [facility] [address] [place] [address] Dr. Mariah Canales Basophils/100 WBC (Bld) 0.5 % Normal 0.2-2.0 [facility] Comment on above: Performed By: #### C BC #### [facility] [address] [place] [address] Dr. Mariah Canales EO # 0.0 103/ul Normal 0.0-0.7 [facility] Comment on above: Performed By: #### C BC #### [facility] [address] [place] [address] Dr. Mariah Canales Eosinophils/100 WBC (Bld) 0.4 % Critically low 0.9-7.0 [facility] Comment on above: Performed By: #### C BC #### [facility] [address] [place] [address] Dr. Mariah Canales Erythrocyte distribution width (RBC) [Ratio] 11.8 % Normal 11.0-15.0 [facility] Comment on above: Performed By: #### C BC #### [facility] [address] [place] [address] Dr. Mariah Canales Hematocrit (Bld) [Volume fraction] 40.7 % Normal 36.0-48.0 [facility] Comment on above: Performed By: #### C BC #### [facility] [address] [place] [address] Dr. Mariah Canales Hemoglobin (Bld) [Mass/Vol] 13.9 g/dL Normal 12.0-16.0 [facility] Comment on above: Performed By: #### C BC #### [facility] [address] [place] [address] Dr. Mariah Canales IG # 0.04 10e3/ul Critically high 0.00-0.03 [facility] Comment on above: Performed By: #### C BC #### [facility] [address] [place] [address] Dr. Mariah Canales IG % 0.4 % Normal 0.0-0.5 [facility] Comment on above: Performed By: #### C BC #### [facility] [address] [place] [address] Dr. Mariah Canales LYMPH # 2.2 103/ul Normal 1.2-3.8 [facility] Comment on above: Performed By: #### C BC #### [facility] [address] [place] [address] Dr. Mariah Canales Lymphocytes/100 WBC (Bld) 23.2 % Normal 20.5-60.0 [facility] Comment on above: Performed By: #### C BC #### [facility] [address] [place] [address] Dr. Mariah Canales MANUAL DIFF REQ NO Normal [facility] Comment on above: Performed By: #### C BC #### [facility] [address] [place] [address] Dr. Mariah Canales MCH (RBC) [Entitic mass] 29.6 pg Normal 26.7-34.0 [facility] Comment on above: Performed By: #### C BC #### [facility] [address] [place] [address] Dr. Mariah Canales MCHC (RBC) [Mass/Vol] 34.2 g/dL Normal 29.9-35.2 [facility] Comment on above: Performed By: #### C BC #### [facility] [address] [place] [address] Dr. Mariah Canales MCV (RBC) [Entitic vol] 86.8 fL Normal 81.0-99.0 [facility] Comment on above: Performed By: #### C BC #### [facility] [address] [place] [address] Dr. Mariah Canales MONO # 0.5 103/ul Normal 0.3-0.8 [facility] Comment on above: Performed By: #### C BC #### [facility] [address] [place] [address] Dr. Mariah Canales Monocytes/100 WBC (Bld) 5.6 % Normal 1.7-12.0 [facility] Comment on above: Performed By: #### C BC #### [facility] [address] [place] [address] Dr. Mariah Canales NEUT # 6.6 103/ul Critically high 1.4-6.5 [facility] Comment on above: Performed By: #### C BC #### [facility] [address] [place] [address] Dr. Mariah Canales Neutrophils/100 WBC (Bld) 69.9 % Normal 43.0-75.0 [facility] Comment on above: Performed By: #### C BC #### [facility] [address] [place] [address] Dr. Mariah Canales Platelet mean volume (Bld) [Entitic vol] 10.5 fL Normal 9.5-13.5 [facility] Comment on above: Performed By: #### C BC #### [facility] [address] [place] [address] Dr. Mariah Canales PLT 280 103/ul Normal 150-450 [facility] Comment on above: Performed By: #### C BC #### [facility] [address] [place] [address] Dr. Mariah Canales RBC 4.69 106/ul Normal 4.20-5.40 [facility] Comment on above: Performed By: #### C BC #### [facility] [address] [place] [address] Dr. Mariah Canales WBC 9.4 103/ul Normal 4.0-11.0 [facility] Comment on above: Performed By: #### C BC #### [facility] [address] [place] [address] Dr. Mariah Canales CULTURE URINEon 05-29-2022 CULTURE URINE Culture Observations : LIGHT GROWTH OF MIXED GENITAL EDSON. NO POTENTIAL PATHOGENS SEEN. Normal [facility] Comment on above: Performed By: #### R UBIGG #### [facility] [address] [address] [address] Mariah Canales GLYCOHEMOGLOBIN A1Con 2021 ADA RECOMMENDATION SEE BELOW Normal [facility] Comment on above: Result Comment: ADA RECOMMENDED LIMIT 4.0 - 6.0 ADA THERAPEUTIC TARGET < 7.0 ACTION SUGGESTED > 7.0 Performed By: #### A 1C #### [facility] [address] [address] [address] Mariah Canales Glucose [Mass/Vol] 103 mg/dL Normal [facility] Comment on above: Performed By: #### A 1C #### [facility] [address] [place] [address] Dr. Mariah Canales HbA1c (Bld) [Mass fraction] 5.2 % Normal 4.5-6.2 [facility] Comment on above: Performed By: #### A 1C #### [facility] [address] [place] [address] Dr. Mariah Canales TYPE AND SCREENon 05-29-2022 TYPE AND SCREEN Negative Normal [facility] Comment on above: Performed By: #### R UBIGG #### [facility] [address] [place] [address] Dr. Mariah Canales US PREG TVon 05-17-2022 [...] BHUPENDRA GRIFFIN Date: 2022-05-17 15:27 Normal [facility] XR KNEE RT 4V or >on 022 [...] by: FANNY MELÉNDEZ Date: 2022-04-13 14:19 Normal [facility] Vital Signs Date Time Vital Sign Value Performing Clinician Faci lity 04-18-2022 12:00-0400 Body height 165.1 cm Mario Davila Other [email or web address] Other 04-18-2022 12:00-0400 Body mass index (BMI) [Ratio] 26.62 kg/m2 Mario Davila Other [email or web address] Other 04-18-2022 12:00-0400 Body weight 72.58 kg Mario Davila Other [email or web address] Other Encounters Encounter Date Encounter Type Care Provider Facility Start: 02-12-2024 End: 02-12-2024 ambulatory RUCHI CRUZ Not Available Start: 02-02-2024 End: 02-02-2024 ambulatory CINTHYA URIARTE Not Available Start: 01-28-2024 End: 01-28-2024 ambulatory CINTHYA URIARTE Not Available Start: 12-08-2023 End: 12-08-2023 Departed Referred Ruchi Cruz Work Phone: [facility] Start: 12-08-2023 End: 12-08-2023 ambulatory Ruchi Arroyo [facility] Work Phone: Start: 10-21-2023 End: 10-21-2023 ambulatory CINTHYA URIARTE [...] 04-18-2022 End: 04-18-2022 ambulatory Mario Davila Other [email or web address] Other Start: 04-18-2022 Office outpatient ne w 45 minutes Mario Davila [facility] Start: 04-13-2022 End: 04-13-2022 ambulatory IRAM JONES . Facility:[facility] Payers Date Payer Category Payer Self-pay [id number] 1990 Unknown [id number] 2.16.84 [id number] 1992 Unknown [id number] 2.16.84 0.1.486720.3.579.2.593 1992 Unknown [id number] 2.16.84 0.1.861196.3.579.2.593 1992 Unknown [id number] 2.16.84 0.1.630504.3.579.2.593 1992 Unknown [id number] 2.16.84 0.1.573922.3.579.2.593 1992 Unknown [id number] 2.16.84 0.1.104963.3.579.2.593 1992 Unknown [id number] .16.84 0.1.642604.3.579.2.1259 1992 Unknown [id number] 2.16.84 0.1.786988.3.579.2.1259 1992 Unknown [id number] 2.16.84 0.1.398032.3.579.2.1259 1992 Unknown [id number] 2.16.84 0.1.711702.3.579.2.1259 1992 Unknown [id number] 2.16.84 0.1.453686.3.579.2.1259 1992 Unknown [id number] 2.16.84 0.1.105444.3.579.2.[address] [facility] [id number] [id number] 1957 Medicaid [id number] Medicaid Medicaid [id number] Unknown [place] BC/BS [id number] Unknown [facility] [id number] Unknown [id number] 2.16.8 40.1.522788.3.579.2.531 Social History Date Type Detail Facility Unknown if ever smoked [email or web address] Other Sex Assigned At Sex Assigned At Bir th [email or web address] Other Start: 1990 Sex Assigned At Female [facility] Evaluation note 04-18-2022 Note Date & Type [...] of pain and plan potential surgical treatment. [email or web address] Other Evaluation note Note Date & Type Note Facility Evaluation note No assessment information availa [facility] Work Phone: History general Narrative - Reported Note Date & Type Note Facility History general Narrative - Reported Type Surgical History right knee acl recon struction by Jeevan Carroll MD at [facility] 2014 [place] [employer] Other Summary Purpose Family History No Family [...] pital DATE CREATED AUTHOR AUTHOR'S ORGANIZ ATION 12/12/2023 [facility] DATE CREATED AUTHOR AUTHOR'S ORGANIZ ATION 02/14/2024 [facility] [employer] Care Teams (unrecognized sec tion and content) [...] BE BASED ON THE PRIMARY CLINICAL RECORDS. [email or web address] provides no warranty or guarantee of the accuracy or completeness of information in this document.
== END 2024-06-14 22:08 | disposition home or self-care (01) ==
LOC: LAB 22:07
PROVIDERS: Visit Provider Obstetrics & Gynecology
DX: R87.612 Low grade squamous intraepithelial lesion on cytologic smear of cervix (LGSIL) (principal)
CPT/HCPCS: 87624; 88175